=== PATIENT | female | born 1955 | race Caucasian/White ===

== ENCOUNTER → 2023-01-15 | Emergency (ER) | payer OTHER ==
[~2023-01-15] VITALS: Ht 170.2 cm; Wt 78.9 kg
[~2023-01-15] MED LIST: ACET-2605 PO; ACET-868 PO; ACETAMINOPHEN 650 MG/SUPP.RECT RC ONE; AMIO200T5 PO; ASPI-1169 PO; BENZ1TAB7 PO; BISA10SU11 RC; CRAN425C6 PO; DOCU-141 PO; FAMO20TA8 PO; INSU100V11 SQ; INSU100V7 SQ; IOHEXOL-300 100 ML VIAL IV ONE; IV NS 0.9% 250 ML IV ONE; LAMO200T10 PO; LEVE500T9 PO; MAGN400O6 PO; METF-440 PO; MIRT-90 PO; NA P133E RC; POVI3780 TP; RISP0.2515 PO; SENN-261 PO; VANCOMYCIN 1.25 GM in IV D5W 500 ML IV ONE; ZINC56.713 TP
[2023-01-15 16:26] LABS: BASOPHILS % (AUTO) 0.3 % (0.0-2.0); EOSINOPHILS # (AUTO) 0.4 K/uL (0.0-0.7); EOSINOPHILS % (AUTO) 4.9 % (0.0-6.0); HEMATOCRIT 30 % (33-45); HEMOGLOBIN 9.6 g/dL (11.5-14.8); LYMPHOCYTES # (AUTO) 1.4 K/uL (0.8-4.8); LYMPHOCYTES % (AUTO) 15.3 % (20.0-44.0); MEAN CORPUSCULAR HEMOGLOBIN 33 PG (26.0-33.0); MEAN CORPUSCULAR HGB CONC 33 g/dl (31.0-36.0); MEAN CORPUSCULAR VOLUME 102 fL (82-100); MONOCYTES # (AUTO) 1.2 K/uL (0.1-1.30); MONOCYTES % (AUTO) 13.3 % (2.0-12.0); NEUTROPHILS % (AUTO) 66.2 % (43.0-81.0); PLATELET COUNT (AUTO) 375 K/uL (150-450); RED BLOOD CELL COUNT(AUTO) 2.92 MIL/uL (4.0-5.2); RED CELL DISTRIBUTION WIDTH 15.8 % (11.5-15.0)
[2023-01-15 16:45] LABS: CALCIUM, SERUM 9.2 mg/dL (8.5-10.1); CARBON DIOXIDE 26 mmol/L (21-32); CHLORIDE 107 mmol/L (98-107); CREATININE 1.3 mg/dL (0.6-1.3); GLUCOSE 90 mg/dL (74-106); POTASSIUM 4.4 mmol/L (3.5-5.1); SODIUM SERUM 141 mmol/L (136-145); UREA NITROGEN, BLOOD 23 mg/dL (7-18)
[2023-01-15 16:52] LABS: ALANINE AMINOTRANSFERASE 10 U/L (12-78); ALBUMIN 2.2 g/dL (3.4-5.0); ALKALINE PHOSPHATASE 75 U/L (46-116); ASPARTATE AMINOTRANSFERASE 12 U/L (15-37); BILIRUBIN,DIRECT 0.1 mg/dL (0.0-0.2); BILIRUBIN,TOTAL 0.3 mg/dL (0.2-1.0); LIPASE 45 U/L (73-393); TOTAL PROTEIN, SERUM 7.2 g/dL (6.4-8.2)
[2023-01-15 16:54] VITALS: TEMP 98.9
[2023-01-15 17:00] LABS: LACTIC ACID 1.6 mmol/L (0.4-2.0)
[2023-01-15 17:25] LABS: INR 1.08 (0.91-1.10); PARTIAL THROMBOPLASTIN TIME 28.5 SEC (24.3-34.3); PROTHROMBIN TIME 11.3 SECS (9.2-11.1)
[2023-01-15 19:12] LABS: APPEARANCE,URINE SLIGHTLY CLOUDY (CLEAR); BILIRUBIN,URINE NEGATIVE (NEGATIVE); BLOOD, URINE 3+ Ery/uL (NEGATIVE); COLOR,URINE YELLOW (YELLOW); KETONES,URINE NEGATIVE (NEGATIVE); LEUKOCYTE ESTERASE ,URINE 3+ (NEGATIVE); NITRITE, URINE NEGATIVE (NEGATIVE); PH,URINE 6.5 (5.0-8.0); PROTEIN,URINE 1+ mg/dl (NEGATIVE); UGLUCOSE NEGATIVE (NEGATIVE); UROBILINOGEN,URINE 0.2 EU/dL (0.2)
[2023-01-15 19:17] LABS: ADD URINE CULTURE YES; BACTERIA,URINE 4+ /HPF (None Seen); RBC,URINE 51-80 /HPF (0-2); SQUAMOUS EPITHELIAL CELL,UR 0-2 /HPF (None Seen); WBC,URINE 51-80 /HPF (0-3)
[2023-01-15 19:51] VITALS: BP 95/66; O2SAT 94
== END | disposition admitted as inpatient to this hospital (09) ==
LOC: ER 14:59
DX: N99.522 Malfunction of incontinent external stoma of urinary tract (principal); N13.30 Unspecified hydronephrosis; N20.0 Calculus of kidney; N39.0 Urinary tract infection, site not specified; N15.1 Renal and perinephric abscess; E11.22 Type 2 diabetes mellitus with diabetic chronic kidney disease; I48.91 Unspecified atrial fibrillation; J44.9 Chronic obstructive pulmonary disease, unspecified; Z87.440 Personal history of urinary (tract) infections; Z79.4 Long term (current) use of insulin; Z79.899 Other long term (current) drug therapy; Z20.822 Contact with and (suspected) exposure to COVID-19
CPT/HCPCS: 99285; 74177; 96365; 96366; 87426; 93005; 85025; 80048; 87040 ×2; 87086; 83605; 83690; 80076; 81001; 36415; 84484; 85730; J3370; J7060; J7050; A4223; Q9967; C9803

== ENCOUNTER 2023-02-11 10:16 | Emergency (ER) | payer OTHER ==
[~2023-02-11] VITALS: Ht 167.6 cm; Wt 77.1 kg
[~2023-02-11 10:16] MED LIST changes: -ACETAMINOPHEN 650 MG/SUPP.RECT RC ONE; -IOHEXOL-300 100 ML VIAL IV ONE; -IV NS 0.9% 250 ML IV ONE; -VANCOMYCIN 1.25 GM in IV D5W 500 ML IV ONE
[2023-02-11 11:08] LABS: EOSINOPHILS # (AUTO) 0.5 K/uL (0.0-0.7)
[2023-02-11 11:10] LABS: BASOPHILS % (AUTO) 0.2 % (0.0-2.0); EOSINOPHILS % (AUTO) 3.8 % (0.0-6.0); HEMATOCRIT 35 % (33-45); HEMOGLOBIN 11.2 g/dL (11.5-14.8); LYMPHOCYTES # (AUTO) 1.3 K/uL (0.8-4.8); LYMPHOCYTES % (AUTO) 9.5 % (20.0-44.0); MEAN CORPUSCULAR HEMOGLOBIN 32 PG (26.0-33.0); MEAN CORPUSCULAR HGB CONC 32 g/dl (31.0-36.0); MEAN CORPUSCULAR VOLUME 98 fL (82-100); MONOCYTES # (AUTO) 1.3 K/uL (0.1-1.30); MONOCYTES % (AUTO) 9.5 % (2.0-12.0); NEUTROPHILS # (AUTO) 10.9 K/uL (1.8-8.9); PLATELET COUNT (AUTO) 415 K/uL (150-450); RED BLOOD CELL COUNT(AUTO) 3.55 MIL/uL (4.0-5.2); RED CELL DISTRIBUTION WIDTH 16.2 % (11.5-15.0); WHITE BLOOD COUNT (AUTO) 14.2 K/uL (4.3-11.0)
[2023-02-11 11:14] LABS: CALCIUM, SERUM 10.4 mg/dL (8.5-10.1); CREATININE 1.9 mg/dL (0.6-1.3); POTASSIUM 4.4 mmol/L (3.5-5.1)
[2023-02-11] MEDS ORDERED: NORM2DIS4 XX (11:16)
[2023-02-11] MEDS ORDERED: MORP20SO SL (11:16)
[2023-02-11] MEDS ORDERED: ACET650S11 RC (11:16)
[2023-02-11] MEDS ORDERED: NYST500P2 TP (11:16)
[2023-02-11] MEDS ORDERED: ONDA4TAB5 SL (11:16)
[2023-02-11] MEDS ORDERED: CRAN425C6 PO (11:16)
[2023-02-11] MEDS ORDERED: BALS60OI TP (11:16)
[2023-02-11] MEDS ORDERED: ATRO2DRO4 SL (11:16)
[2023-02-11] MEDS ORDERED: LORA2DIS5 SL (11:16)
[2023-02-11] MEDS ORDERED: MORP100S3 SL (11:18)
[2023-02-11 11:20] LABS: ALBUMIN 2.6 g/dL (3.4-5.0); BILIRUBIN,DIRECT 0.1 mg/dL (0.0-0.2); BILIRUBIN,TOTAL 0.2 mg/dL (0.2-1.0); TOTAL PROTEIN, SERUM 8.5 g/dL (6.4-8.2)
[2023-02-11] MEDS ORDERED: LORAZEPAM INJ 2 MG/ML VIAL ONE (13:18)
[2023-02-11] MEDS ORDERED: LORAZEPAM INJ 2 MG/ML VIAL IV ONE ×2 (13:30)
[2023-02-11 13:33] LABS: APPEARANCE,URINE TURBID (CLEAR); COLOR,URINE YELLOW (YELLOW); PH,URINE 8.5 (5.0-8.0)
[2023-02-11 13:34] LABS: BILIRUBIN,URINE 1+ (NEGATIVE); BLOOD, URINE 3+ Ery/uL (NEGATIVE); KETONES,URINE NEGATIVE (NEGATIVE); PROTEIN,URINE 3+ mg/dl (NEGATIVE); UGLUCOSE NEGATIVE (NEGATIVE)
[2023-02-11 13:35] LABS: LEUKOCYTE ESTERASE ,URINE 3+ (NEGATIVE); NITRITE, URINE POSITIVE (NEGATIVE); UROBILINOGEN,URINE 0.2 EU/dL (0.2)
[2023-02-11 14:01] LABS: WBC,URINE TOO NUMEROUS TO COUN /HPF (0-3)
[2023-02-11 14:02] LABS: ADD URINE CULTURE YES; BACTERIA,URINE Few /HPF (None Seen); SQUAMOUS EPITHELIAL CELL,UR Few /HPF (None Seen); TRIPLE PHOSPHATE CRYSTAL,UR Many /HPF (None Seen)
[2023-02-11] MEDS ORDERED: CEFTRIAXONE 1GM BAG (ER ONLY) 1 GM/50 ML PIGGYBACK IV ONE (15:30)
[2023-02-11] MEDS ORDERED: IV NS 0.9% 1,000 ML BAG IV ONE (16:00)
[2023-02-11] MEDS ORDERED: CEFTRIAXONE 1GM BAG (ER ONLY) 50 ML IV ONE (18:50)
[2023-02-11 23:28] VITALS: BP 92/57; TEMP 97.8; O2SAT 93
== END 2023-02-11 23:28 | disposition admitted as inpatient to this hospital (09) ==
LOC: ER 10:26
DX: N39.0 Urinary tract infection, site not specified (principal); T83.022A Displacement of nephrostomy catheter, initial encounter; I48.91 Unspecified atrial fibrillation; J44.9 Chronic obstructive pulmonary disease, unspecified; E11.9 Type 2 diabetes mellitus without complications; Z87.442 Personal history of urinary calculi; Z79.84 Long term (current) use of oral hypoglycemic drugs; Z79.4 Long term (current) use of insulin; Z20.822 Contact with and (suspected) exposure to COVID-19
CPT/HCPCS: 99285; 74176; 96365; 96361; 96366; 96375; 87426; 85025; 80048; 87086; 80076; 81001; 36415; J2060; J7030; A4223; J0696; C9803